=== PATIENT | male | born 1950 | race Caucasian/White ===

== ENCOUNTER → 2024-08-10 | Outpatient (CLI) | payer OTHER, MEDICARE, SELFPAY ==
[2024-08-10 16:29] LABS: Basophils % (Auto) 0 % (0-2.5); Eosinophils # (Auto) 0.1 Thou/mm3 (0.0-0.5); Eosinophils % (Auto) 1 % (0-10); Hemoglobin 13.3 g/dL (13.5-16.0); Immature Granulocytes % (Auto) 0 % (0-0); Immature Granulocytes Auto 0.04 Thou/mm3 (0.00-0.00); Lymphocytes # (Auto) 0.8 Thou/mm3 (1.0-4.8); Lymphocytes % (Auto) 9 % (10-50); Mean Corpuscular HGB Conc 33.3 g/dl (31.0-37.0); Mean Corpuscular Hemoglobin 28.6 pg (25.0-35.0); Mean Corpuscular Volume 86 fL (80-100); Monocytes # (Auto) 0.9 Thou/mm3 (0.0-0.8); Monocytes % (Auto) 10 % (0-12); Neutrophils # (Auto) 7.1 Thou/mm3 (1.8-7.7); Neutrophils % (Auto) 80 % (37-80); Nucleated Red Blood Cell % 0 /100 WBC (0); Platelet Count 240 Thou/mm3 (140-440); RDW Standard Deviation 40.3 fL (35.1-43.9); Red Blood Count 4.65 Miln/mm3 (4.50-5.90); White Blood Count 8.9 Thou/mm3 (3.8-10.6)
[2024-08-10 16:44] LABS: Iron 51 mcg/dL (65-175); Total Iron Binding Capacity 312 mcg/dL (250-425)
[2024-08-10 16:45] LABS: Alanine Aminotransferase 29 U/L (10-49); Albumin, Serum 3.9 gm/dL (3.4-4.8); Albumin/Globulin Ratio 1.5 (1.2-2.2); Alkaline Phosphatase 106 U/L (46-116); Anion Gap 10 (7-16); Aspartate Amino Transferase 25 U/L (0-34); BUN/Creatinine Ratio 12 Ratio (12-20); Bilirubin,Total 0.3 mg/dL (0.3-1.2); Blood Urea Nitrogen 12 mg/dL (9-23); Calcium 8.7 mg/dL (8.3-10.6); Calcium (Corrected) 8.8 mg/dL (8.5-10.1); Carbon Dioxide 32.1 mMol/L (20.0-31.0); Chloride 101 mMol/L (98-107); Globulin 2.6 gm/dL (2.3-3.5); Glucose 97 mg/dL (74-106); Magnesium 1.6 mg/dL (1.6-2.6); Osmolality,Calculated 284 (275-295); Potassium 3.2 mMol/L (3.4-5.1); Sodium 143 mMol/L (136-145); Total Protein 6.5 gm/dL (5.7-8.2); eGFR > 60 See Note
[2024-08-10 16:47] LABS: Vitamin B12 1242 pg/mL (211-911)
== END | disposition home or self-care (01) ==
LOC: COPL 15:23
PROVIDERS: PCP Specialist; Referring Provider Psychiatry & Neurology Neurology; Visit Provider Specialist
DX: D50.9 Iron deficiency anemia, unspecified (principal); D51.9 Vitamin B12 deficiency anemia, unspecified; I10 Essential (primary) hypertension; K50.90 Crohn's disease, unspecified, without complications; K52.9 Noninfective gastroenteritis and colitis, unspecified; R53.82 Chronic fatigue, unspecified
CPT/HCPCS: 36415; 80053; 82607; 83540; 83550; 83735; 85025

== ENCOUNTER 2024-08-19 13:33 | Outpatient (AMB) | payer OTHER, MEDICARE, SELFPAY ==
[2024-08-19 13:42] VITALS: BP 132/81; PULSE 92; RESP 16; TEMP 36.4; O2SAT 92; BMI 35.4
--- NOTE | 2024-08-19 13:42 | ACNOTE_ITS ---
Vital Signs 08/19/24 13:42 Height 1.88 m Height Method Stated Weight 125.333 kg Weight Measurement Method Standing Scale BMI 35.4 BP 132/81 H Blood Pressure Source Automatic Cuff Blood Pressure Location Left Upper Arm Position Sitting Respiration 16 Pulse 92 Pulse Source Monitor Temp 97.5 F Temp Source Temporal Artery Scan Pulse Oximetry (%) 92 L Oxygen Delivery Method Room Air Allergies/Meds Allergies & Medications Allergies No Known Allergies Allergy (Verified 08/19/24 13:43) Medication Reconciliation finasteride 5 mg tablet 5 mg PO QDAY 05/06/19 [History Confirmed 08/19/24] rivaroxaban 20 mg tablet (Xarelto) 20 mg PO QDAY 05/06/19 [History Confirmed 08/19/24] esomeprazole magnesium 40 mg capsule,delayed release 40 mg PO QDAY 05/11/19 [History Confirmed 08/19/24] tamsulosin 0.4 mg capsule (Flomax) 0.4 mg PO QDAY #7 caps 01/26/20 [Rx Confirmed 08/19/24] MA Intake Visit Data Collection New Patient or Established: Established Patient (seen at [facility] within 3 years) Seen by Clinical Staff ONLY (RN/MA): No Pain Present Currently: No Pain scale:: 0 Pain Scale Used: Rosas-Gonzalez/Numerical Last Sawyer Required: No PCP or OBGYN visit in last 3 months: No Hx Now: No Do You Feel Safe at Home: Yes Authorities Contacted: N/A Smoking Status Smoking Status: Never smoker Immunization / Flu Flu Vaccine in the Last 12 Months: No Flu Vaccine Exclusion Criteria: No Exclusion Criteria Past Medical History Past Medical History NEUROLOGIC: Positive Transient Ischemic Attacks (TIA) (10/09/23); Negative Neurological Disorders or Seizures CARDIAC: Positive Cardiac Disorders and Deep Vein Thrombosis; Negative Congestive Heart Failure or Hypertension RESPIRATORY: Positive Pneumonia; Negative Chronic Obstructive Pulmonary Disease (COPD) GASTROINTESTINAL: Positive Gastrointestinal Disorders, Gall Bladder Disease, Gastrointestinal Bleed, Fan's Esophagus, Ulcer, Crohn's Disease, Obstructive Bowel, Hemorrhoids and Gastroesophageal Reflux Disease; Negative Hepatitis or Colorectal Cancer GENITOURINARY: Positive Genitourinary Disorders and Benign Prostatic Hyperplasia; Negative Renal Disease or Prostate Cancer REPRODUCTIVE: Negative Breast Cancer, Genital Herpes, Gonorrhea, Syphilis or Testicular Cancer MUSCULOSKELETAL: Positive Degenerative Disk Disease; Negative Bone Cancer ENDOCRINE: Negative Endocrine Disorders, Diabetes Mellitus Type 1 or Diabetes Mellitus Type 2 HEMATOLOGIC: Positive Blood Disorders and Anemia; Negative Leukemia, Hemophilia, Thalassemia, Sickle Cell Disease or Clotting Pro blems OTHER HISTORY: Positive Shingles, Chicken Pox, Measles and Mumps; Negative Hospitalization, Down Syndrome, Developmental Delay, Falls, Blood Transfusions, Blood Transfusion Reaction, Anesthesia Reactions, Organ Transplant, Chemotherapy, Radiation Therapy, Hyperbaric Therapy, MRSA, VRSA, Vancomycin-Resistant Enterococci, Human Immunodeficiency Virus (HIV), Rubella ([place]ian Measles), Pertussis, Clostridium Difficile, Breast Cancer, Cervical Cancer, Colorectal Cancer, Lung Cancer, Ovarian Cancer, Prostate Cancer or Testicular Cancer Family History FAMILY HISTORY: Positive Family Respiratory Disorders, Family Cardiac Disorders, Family Gastrointestinal Problems and Family Cancer; Negative Family Psychiatric Problems, Family Surgery or Family Anesthesia Reaction Surgical History SURGICAL: Positive Tonsillectomy, Abdominal Surgery, Gastrostomy and Bowel Surgery; Negative Neurologic Surgery, Brain Shunt, Mastectomy, Lumpectomy, Hysterectomy, Tubal Ligation, Section, Vasectomy or Organ Transplant Social History SMOKING STATUS: Smoking status: Never smoker SECOND HAND EXPOSURE: second hand exposure: No ALCOHOL: Alcohol Intake: Former HOUSING: Housing: House LIVES WITH: Lives With: Spouse Patient Radha Rossi Social History Living Situation History Housing: House Housing Other:: Patient lives with at home Tobacco History Smoking Status: Never smoker Second Hand Smoke Exposure: No Alcohol History Alcohol Intake: Former Domestic Abuse History Do You Feel Safe at Home: Yes Review of Systems Report any current symptoms Only answer those that you have currently: Past Medical History Past Medical History Have you ever been diagnosed with any of the following: Neurological Problems Transient Ischemic Attacks (TIA): Yes (10/09/23) Seizures: No Cardiology Problems Congestive Heart Failure: No Deep Vein Thrombosis: Yes Hypertension: No Respiratory Problems Chronic Obstructive Pulmonary Disease (COPD): No Pneumonia: Yes Stomache/Intestinal Problems Hepatitis: No Gall Bladder Disease: Yes Gastrointestinal Bleed: Yes Fan's Esophagus: Yes Ulcer: Yes Colorectal Cancer: No Crohn's Disease: Yes Obstructive Bowel: Yes Hemorrhoids: Yes Gastroesophageal Reflux Disease: Yes Genital/Urinary Problems Renal Disease: No Prostate Cancer: No Benign Prostatic Hyperplasia: Yes Reproductive Problems Breast Cancer: No Genital Herpes: No Gonorrhea: No Syphilis: No Testicular Cancer: No Musculoskeletal Problems Bone Cancer: No Degenerative Disk Disease: Yes Endocrine Problems Diabetes Mellitus Type 1: No Diabetes Mellitus Type 2: No Blood Problems Anemia: Yes Leukemia: No Hemophilia: No Thalassemia: No Sickle Cell Disease: No Clotting Problems: No Other Problems Hospitalization: No Down Syndrome: No Developmental Delay: No Shingles: Yes Falls: No Blood Transfusions: No Blood Transfusion Reaction: No Anesthesia Reactions: No Organ Transplant: No Chemotherapy: No Radiation Therapy: No Hyperbaric Therapy: No MRSA: No VRSA: No Vancomycin-Resistant Enterococci: No Human Immunodeficiency Virus (HIV): No Chicken Pox: Yes Measles: Yes Mumps: Yes Rubella (Albanian Measles): No Pertussis: No Clostridium Difficile: No Cervical Cancer: No Lung Cancer: No Ovarian Cancer: No Surgical History Hysterectomy: No Assessment & Plan Diagnosis / Problem List (1) Bilateral lower extremity edema: Status: Acute Orders: Orders CBC 90 Days K52.9 - Noninfective gastroenteritis and colitis, unspecified Vitamin D 25 Hydroxy Total 90 Days K52.9 - Noninfective gastroenteritis and colitis, unspecified Lipid Panel 90 Days I48.91 - Unspecified atrial fibrillation Ambulatory Hemoglobin A1C 90 Days I48.91 - Unspecified atrial fibrillation Free T4 (Free Thyroxine) 90 Days I48.91 - Unspecified atrial fibrillation US venous doppler LE BI 90 Days R60.0 - Localized edema XR foot comp RT min 3V 90 Days Comprehensive Metabolic Panel 90 Days K52.9 - Noninfective gastroenteritis and colitis, unspecified XR knee BI 3V 90 Days Referrals Orthopedics M25.561 - Pain in right knee, M25.562 - Pain in left knee, M51.36 - Other intervertebral disc degeneration, lumbar region, M79.671 - Pain in right foot, S39.92XA - Unspecified injury of lower back, initial encounter Office Procedures [facility] Level of Care Nursing/Assessment Patient Status: Established Patient Nursing Assessment/Reassessment: Medication Reconciliation, Update PMH in EMR and Vital Signs Coordination of Care: Complex Care and Chronic Disease 1-5, Consent,records obtained, informed consent, Education Simp Pt/Fam and Staff clarify orders Established Patient Charge Established Patient Point Assignment: 85 Established Patient Point Charge: Level 3 (80-115)
== END 2024-08-19 14:34 | disposition home or self-care (01) ==
LOC: HODAHC 13:33
PROVIDERS: PCP Specialist; Referring Provider Specialist
DX: K52.9 Noninfective gastroenteritis and colitis, unspecified (principal); R60.0 Localized edema; I48.91 Unspecified atrial fibrillation; M25.562 Pain in left knee; M25.561 Pain in right knee; M51.369 Other intervertebral disc degeneration, lumbar region without mention of lumbar back pain or lower extremity pain; S39.92XA Unspecified injury of lower back, initial encounter; X58.XXXA Exposure to other specified factors, initial encounter
CPT/HCPCS: 99213; G0463

== ENCOUNTER → 2024-09-01 | Outpatient (CLI) | payer MEDICARE, SELFPAY ==
--- NOTE | 2024-09-01 14:52 | XR_ITS ---
Examination: Venous duplex lower extremity sonogram, bilateral. Date and time of exam: September 01, 2024 1504 hrs. Indications: Lower extremity edema 15 years, nonocclusive thrombus left popliteal vein on venous Doppler December 11, 2022, patient is anticoagulated Technique: Multiple sonographic images of the deep venous system have been obtained. B-mode/2-D grayscale imaging of vascular structures and Doppler spectral analysis (waveforms) and color performed Both legs are examined. Findings: Deep venous systems do not demonstrate abnormal echogenicity. Left popliteal cyst 4.9 cm All visualized deep veins exhibit compressibility. All visualized deep veins exhibit augmentation. Impression: Negative for deep vein thrombosis
--- NOTE | 2024-09-01 15:53 | XR_ITS ---
Examination: Foot, right, 3 views Technique: AP, oblique, lateral views foot, 3 views Date and time of exam: September 01, 2024 1625 hrs. Indications: Right foot pain beginning 2 months ago Findings: Moderate osteopenia 4 mm plantar bony calcaneal spur Moderate diffuse narrowing intertarsal tarsometatarsal metatarsal phalangeal and interphalangeal joints No erosive arthritis Small old appearing bone densities adjacent to the calcaneus but clinical correlation advised Impression: Moderate diffuse narrowing joints of the foot No erosive arthritis Small old appearing bone densities adjacent to the calcaneus but clinical correlation advised Recommend CT scan foot follow-up as clinically warranted
--- NOTE | 2024-09-01 15:53 | XR_ITS ---
Examination: Knee bilateral, 6 views Technique: Knee AP, lateral, oblique each knee total 6 views Date and time of exam: September 01, 2024 1557 hrs. Indications: Bilateral knee pain beginning 4 weeks ago Findings: Bilateral moderate narrowing medial joint spaces Bilateral mild osteoarthritis patellofemoral joints No fracture or dislocation involving either knee Impression: Bilateral moderate narrowing medial joint spaces
[2024-09-01 17:46] LABS: Basophils % (Auto) 0 % (0-2.5); Eosinophils # (Auto) 0.2 Thou/mm3 (0.0-0.5); Eosinophils % (Auto) 2 % (0-10); Hematocrit 37.7 % (41.0-53.0); Hemoglobin 12.2 g/dL (13.5-16.0); Immature Granulocytes % (Auto) 1 % (0-0); Immature Granulocytes Auto 0.06 Thou/mm3 (0.00-0.00); Lymphocytes # (Auto) 1.1 Thou/mm3 (1.0-4.8); Lymphocytes % (Auto) 12 % (10-50); Mean Corpuscular HGB Conc 32.4 g/dl (31.0-37.0); Mean Corpuscular Hemoglobin 28.4 pg (25.0-35.0); Mean Corpuscular Volume 88 fL (80-100); Monocytes # (Auto) 0.8 Thou/mm3 (0.0-0.8); Monocytes % (Auto) 9 % (0-12); Neutrophils # (Auto) 7.1 Thou/mm3 (1.8-7.7); Neutrophils % (Auto) 76 % (37-80); Nucleated Red Blood Cell % 0 /100 WBC (0); Platelet Count 235 Thou/mm3 (140-440); RDW Standard Deviation 42.5 fL (35.1-43.9); Red Blood Count 4.29 Miln/mm3 (4.50-5.90); White Blood Count 9.3 Thou/mm3 (3.8-10.6)
[2024-09-01 18:01] LABS: Alanine Aminotransferase 24 U/L (10-49); Albumin, Serum 3.9 gm/dL (3.4-4.8); Albumin/Globulin Ratio 1.4 (1.2-2.2); Alkaline Phosphatase 96 U/L (46-116); Anion Gap 8 (7-16); Aspartate Amino Transferase 25 U/L (0-34); BUN/Creatinine Ratio 11 Ratio (12-20); Bilirubin,Total 0.3 mg/dL (0.3-1.2); Blood Urea Nitrogen 11 mg/dL (9-23); Calcium 8.4 mg/dL (8.3-10.6); Calcium (Corrected) 8.5 mg/dL (8.5-10.1); Carbon Dioxide 31.3 mMol/L (20.0-31.0); Chloride 105 mMol/L (98-107); Globulin 2.7 gm/dL (2.3-3.5); Glucose 97 mg/dL (74-106); Magnesium 1.6 mg/dL (1.6-2.6); Osmolality,Calculated 286 (275-295); Potassium 3.2 mMol/L (3.4-5.1); Sodium 144 mMol/L (136-145); Total Protein 6.6 gm/dL (5.7-8.2); Vitamin D 25 Hydroxy Total 36.2 ng/mL (7.3-40.2); eGFR > 60 See Note
[2024-09-01 18:08] LABS: Glucose Estimated Average 111 mg/dL (80-131); Hemoglobin A1C 5.5 % Hgb (4.8-6.0)
== END | disposition home or self-care (01) ==
LOC: CDIM 14:38 → COPL 16:41
PROVIDERS: PCP Internal Medicine Cardiovascular Disease; Visit Provider Radiology Diagnostic Radiology
DX: R60.0 Localized edema (principal); M25.862 Other specified joint disorders, left knee; M25.861 Other specified joint disorders, right knee; M25.871 Other specified joint disorders, right ankle and foot; I48.91 Unspecified atrial fibrillation; K52.9 Noninfective gastroenteritis and colitis, unspecified; I48.0 Paroxysmal atrial fibrillation; I63.9 Cerebral infarction, unspecified
CPT/HCPCS: 36415; 73562; 73630; 80053; 82306; 83036; 83735; 84439; 85025; 93970

== ENCOUNTER → 2024-09-05 | Outpatient (CLI) | payer MEDICARE, SELFPAY ==
[2024-09-05 09:57] LABS: Cardiac Risk Estimate 3.4 RATIO (4.0-6.7); Cholesterol 138 mg/dL (132-200); HDL Cholesterol 41 mg/dL (40-60); LDL Cholesterol,Calculated 35 mg/dL (0-130); Triglycerides 309 mg/dL (30-150)
== END | disposition home or self-care (01) ==
LOC: COPL 08:16
DX: I48.91 Unspecified atrial fibrillation (principal)
CPT/HCPCS: 36415; 80061

== ENCOUNTER 2024-09-23 13:25 | Outpatient (AMB) | payer MEDICARE, SELFPAY ==
[2024-09-23 13:31] VITALS: BP 142/82; PULSE 95; RESP 18; TEMP 36.8; O2SAT 93; BMI 35.8
--- NOTE | 2024-09-23 13:31 | PD.RESCLINIC ---
Vital Signs 09/23/24 13:31 Height 1.88 m Height Method Stated Weight 126.722 kg Weight Measurement Method Standing Scale BMI 35.8 BP 142/82 H Blood Pressure Source Automatic Cuff Blood Pressure Location Right Upper Arm Position Sitting Respiration 18 Pulse 95 Pulse Source Monitor Temp 98.3 F Temp Source Temporal Artery Scan Pulse Oximetry (%) 93 L Oxygen Delivery Method Room Air Allergies/Meds Allergies & Medications Allergies No Known Allergies Allergy (Verified 09/23/24 13:31) Medication Reconciliation finasteride 5 mg tablet 5 mg PO QDAY 05/06/19 [History Confirmed 09/23/24] rivaroxaban 20 mg tablet (Xarelto) 20 mg PO QDAY 05/06/19 [History Confirmed 09/23/24] esomeprazole magnesium 40 mg capsule,delayed release 40 mg PO QDAY 05/11/19 [History Confirmed 09/23/24] tamsulosin 0.4 mg capsule (Flomax) 0.4 mg PO QDAY #7 caps 01/26/20 [Rx Confirmed 09/23/24] MA Intake Visit Data Collection New Patient or Established: Established Patient (seen at [facility] within 3 years) Seen by Clinical Staff ONLY (RN/MA): No Pain Present Currently: No Pain scale:: 0 Pain Scale Used: Rosas-Gonzalez/Numerical Social Sciences Research Scientist Required: No PCP or OBGYN visit in last 3 months: No Hx Now: No Do You Feel Safe at Home: Yes Authorities Contacted: N/A Smoking Status Smoking Status: Never smoker Immunization / Flu Flu Vaccine in the Last 12 Months: No Flu Vaccine Exclusion Criteria: No Exclusion Criteria Past Medical History Past Medical History NEUROLOGIC: Positive Transient Ischemic Attacks (TIA) (10/09/23); Negative Neurological Disorders or Seizures CARDIAC: Positive Cardiac Disorders and Deep Vein Thrombosis; Negative Congestive Heart Failure or Hypertension RESPIRATORY: Positive Pneumonia; Negative Chronic Obstructive Pulmonary Disease (COPD) GASTROINTESTINAL: Positive Gastrointestinal Disorders, Gall Bladder Disease, Gastrointestinal Bleed, Fan's Esophagus, Ulcer, Crohn's Disease, Obstructive Bowel, Hemorrhoids and Gastroesophageal Reflux Disease; Negative Hepatitis or Colorectal Cancer GENITOURINARY: Positive Genitourinary Disorders and Benign Prostatic Hyperplasia; Negative Renal Disease or Prostate Cancer REPRODUCTIVE: Negative Breast Cancer, Genital Herpes, Gonorrhea, Syphilis or Testicular Cancer MUSCULOSKELETAL: Positive Degenerative Disk Disease; Negative Bone Cancer ENDOCRINE: Negative Endocrine Disorders, Diabetes Mellitus Type 1 or Diabetes Mellitus Type 2 HEMATOLOGIC: Positive Blood Disorders and Anemia; Negative Leukemia, Hemophilia, Thalassemia, Sickle Cell Disease or Clotting Problems OTHER HISTORY: Positive Shingles, Chicken Pox, Measles and Mumps; Negative Hospitalization, Down Syndrome, Developmental Delay, Falls, Blood Transfusions, Blood Transfusion Reaction, Anesthesia Reactions, Organ Transplant, Chemotherapy, Radiation Therapy, Hyperbaric Therapy, MRSA, VRSA, Vancomycin-Resistant Enterococci, Human Immunodeficiency Virus (HIV), Rubella ([place] Measles), Pertussis, Clostridium Difficile, Breast Cancer, Colorectal Cancer, Lung Cancer, Prostate Cancer or Testicular Cancer Family History FAMILY HISTORY: Positive Family Respiratory Disorders, Family Cardiac Disorders, Family Gastrointestinal Problems and Family Cancer; Negative Family Psychiatric Problems, Family Surgery or Family Anesthesia Reaction Surgical History SURGICAL: Positive Tonsillectomy, Abdominal Surgery, Gastrostomy and Bowel Surgery; Negative Neurologic Surgery, Brain Shunt, Mastectomy, Lumpectomy, Hysterectomy, Tubal Ligation, Section, Vasectomy or Organ Transplant Social History SMOKING STATUS: Smoking status: Never smoker SECOND HAND EXPOSURE: second hand exposure: No ALCOHOL: Alcohol Intake: Former HOUSING: Housing: House LIVES WITH: Lives With: Spouse Patient Radha Rossi Social History Living Situation History Housing: House Housing Other:: Patient lives with at home Tobacco History Smoking Status: Never smoker Second Hand Smoke Exposure: No Alcohol History Alcohol Intake: Former Domestic Abuse History Do You Feel Safe at Home: Yes Review of Systems Report any current symptoms Only answer those that you have currently: Past Medical History Past Medical History Have you ever been diagnosed with any of the following: Neurological Problems Transient Ischemic Attacks (TIA): Yes (10/09/23) Seizures: No Cardiology Problems Congestive Heart Failure: No Deep Vein Thrombosis: Yes Hypertension: No Respiratory Problems Chronic Obstructive Pulmonary Disease (COPD): No Pneumonia: Yes Stomache/Intestinal Problems Hepatitis: No Gall Bladder Disease: Yes Gastrointestinal Bleed: Yes Fan's Esophagus: Yes Ulcer: Yes Colorectal Cancer: No Crohn's Disease: Yes Obstructive Bowel: Yes Hemorrhoids: Yes Gastroesophageal Reflux Disease: Yes Genital/Urinary Problems Renal Disease: No Prostate Cancer: No Benign Prostatic Hyperplasia: Yes Reproductive Problems Breast Cancer: No Genital Herpes: No Gonorrhea: No Syphilis: No Testicular Cancer: No Musculoskeletal Problems Bone Cancer: No Degenerative Disk Disease: Yes Endocrine Problems Diabetes Mellitus Type 1: No Diabetes Mellitus Type 2: No Blood Problems Anemia: Yes Leukemia: No Hemophilia: No Thalassemia: No Sickle Cell Disease: No Clotting Problems: No Other Problems Hospitalization: No Down Syndrome: No Developmental Delay: No Shingles: Yes Falls: No Blood Transfusions: No Blood Transfusion Reaction: No Anesthesia Reactions: No Organ Transplant: No Chemotherapy: No Radiation Therapy: No Hyperbaric Therapy: No MRSA: No VRSA: No Vancomycin-Resistant Enterococci: No Human Immunodeficiency Virus (HIV): No Chicken Pox: Yes Measles: Yes Mumps: Yes Rubella ([place] Measles): No Pertussis: No Clostridium Difficile: No Lung Cancer: No History of Present Illness HPI Narrative Mr. Steve is a 73-year-old male with past medical history of TIA, paroxysmal atrial fibrillation, deep vein thrombus, Crohn's disease status post colostomy, BPH, chronic knee pain and right foot fracture status post complications who presented to the [facility] ambulatory health clinic to establish care. Patient has history of paroxysmal atrial fibrillation and unprovoked deep vein thrombosis currently on Xarelto 20 mg p.o. daily, patient follows Dr. Lius Armando Melo as his nurse leader. Patient follows Dr. Adryan Frank for his Crohn's disease, patient is status post colostomy by Dr. Ludwin Vazquez. Patient is on esomeprazole. Patient did report that he received IV infusion in the past as ordered by Dr. Frank. Patient also has a history of benign prostate hypertrophy and is on Flomax and finasteride. Patient was sent to [facility] in September 2023 for IV iron infusions. Patient had recent lab work done with Dr. Frank outpatient which showed hemoglobin 13.3 otherwise chemistry is unremarkable, potassium 3.2 iron level 51, vitamin B-12 level 1242. Patient does not have a primary care provider and wants to establish care at [facility]. 08/19/2024: Patient seen in clinic for first visit, patient's major complaint is bilateral knee pain which is uncontrolled despite multiple trials of pain medication. Patient does have history of osteoarthritis per him, will obtain bilateral knee x-ray 3 view, will refer patient to orthopedic surgeon Dr. Tobar to establish care. Patient also complains of right foot pain reports that he had a fracture in the past and had post union complications, denies seeing an orthopedic surgeon for the same. Patient's last bilateral venous Doppler was in 2022 and patient has been on Xarelto since then, patient never had outpatient workup for hypercoagulability. But does need to be on anticoagulation as patient does have paroxysmal atrial fibrillation, will obtain bilateral venous Doppler for lower extremities. Patient also complains of generalized weakness will obtain vitamin D levels and thyroid panel. Will obtain CBC CMP hemoglobin A1c and lipid panel, considering history of TIA. Patient will be established at [facility] for primary care. 09/01/2024: CBC shows WBC 9.3, RBC 4.29, hemoglobin 12.2, hematocrit 37.7, platelets 235. CMP shows sodium 144, potassium 3.2, chloride 105, bicarb 31.3, BUN 11, creatinine 1.0, GFR more than 60, glucose 97, hemoglobin A1c 5.5, magnesium 1.6, corrected calcium 8.5, total bilirubin 0.3, AST 25, ALT 24, alk phos 96, total protein 6.6, albumin 3.9, globulin 2.7, triglycerides 390, cholesterol 138, LDL 35, HDL 41, vitamin D level 36.2 Free T4 0.90. Bilateral venous Doppler study shows no DVT, foot x-ray shows moderate diffuse narrowing joints of foot, no erosive arthritis, small old appearing bold densities adjacent to calcaneus but clinical correlation advised. Knee x-ray bilateral shows bilateral moderate narrowing medial joint spaces. 09/23/2024:Patient seen for follow-up, labs and imaging reviewed. Patient expresses frustration over unable to being referred to orthopedics. Educated patient on referral process, informed him that we will reach out to orthopedics regarding his referral status and inform him as soon as possible. Patient otherwise also expresses frustration over financial hardships due to insurance gap, reports that he has to pay multiple co-pays. From health perspective patient has no new current complaints, reports that he still has extensive bilateral knee pain secondary to osteoarthritis patient's advanced joint diseases evidenced but his symptoms and imaging findings of narrowing space. Patient has tried physical therapy in the past and [id number] NSAIDs to manage pain but reports that the pain is progressive and is not resolving, requesting orthopedic evaluation. Patient has limited mobility secondary to disease and uses walker for mobilization. Per patient's review of labs elevated triglycerides noted, informed patient of findings, patient wants to try conservative management. Review of Systems Review of Systems Systems Reviewed: All systems reviewed, normal except as documented Objective/Exam Narrative Physical exam: Physical Exam General: Awake and in no acute distress. Conversational and non-toxic appearing. HEENT: Normocephalic, atraumatic, mucous membranes moist. Heart: Regular rate and rhythm, no murmurs. Lungs: Clear to auscultation with no wheezing or crackles. Abdomen: Soft, nondistended, nontender, positive bowel sounds. ?No guarding or rebound tenderness. Positive for colostomy. Neurologic: Alert and oriented x3, no gross neurological deficit, and patient able to move all 4 extremities. Extremities: 1+ BLE edema Skin: No rash or ecchymoses. Results 09/01/2024: CBC shows WBC 9.3, RBC 4.29, hemoglobin 12.2, hematocrit 37.7, platelets 235. CMP shows sodium 144, potassium 3.2, chloride 105, bicarb 31.3, BUN 11, creatinine 1.0, GFR more than 60, glucose 97, hemoglobin A1c 5.5, magnesium 1.6, corrected calcium 8.5, total bilirubin 0.3, AST 25, ALT 24, alk phos 96, total protein 6.6, albumin 3.9, globulin 2.7, triglycerides 390, cholesterol 138, LDL 35, HDL 41, vitamin D level 36.2 Free T4 0.90. Bilateral venous Doppler study shows no DVT, foot x-ray shows moderate diffuse narrowing joints of foot, no erosive arthritis, small old appearing bold densities adjacent to calcaneus but clinical correlation advised. Knee x-ray bilateral shows bilateral moderate narrowing medial joint spaces. Assessment & Plan Diagnosis / Problem List (1) Knee pain, bilateral: Status: Acute Qualifiers: Chronicity: chronic Qualified Code(s): M25.561 - Pain in right knee; M25.562 - Pain in left knee; G89.29 - Other chronic pain Assessment & Plan: Patient has tried physical therapy in the past and [id number] NSAIDs to manage pain but reports that the pain is progressive and is not resolving, requesting orthopedic evaluation. Patient has limited mobility secondary to disease and uses walker for mobilization. Patient does have history of osteoarthritis Knee x-ray bilateral shows bilateral moderate narrowing medial joint spaces. Plan: -Continue to use flnk-eia-unemvpe medications as needed, will consider referral to physical therapy though has been ineffective in the past -Referred patient to orthopedic surgeon Dr. Tobar to establish care (2) Right foot pain: Status: Acute Assessment & Plan: Complains of right foot pain reports that he had a fracture in the past and had post union complications, denies seeing an orthopedic surgeon for the same. Foot x-ray shows moderate diffuse narrowing joints of foot, no erosive arthritis, small old appearing bold densities adjacent to calcaneus but clinical correlation advised. Plan: -Referred patient to orthopedic surgeon Dr. Tobar to establish care (3) Atrial fibrillation: Status: Acute Qualifiers: Atrial fibrillation type: paroxysmal Qualified Code(s): I48.0 - Paroxysmal atrial fibrillation Assessment & Plan: Patient has history of paroxysmal atrial fibrillation and unprovoked deep vein thrombosis currently on Xarelto 20 mg p.o. daily, patient follows Dr. Luis Armando Melo as his nurse leader. DVT diagnosed in 2022. A1c, T4 -within normal limits Lipid panel shows triglycerides 390, cholesterol 138, LDL 35, HDL 41, Plan: - Continue follow-up with cardiology - Continue Xarelto - ASCVD risk score 22.4%, recommended statin. Case discussed extensively with patient patient does not want any medication for now wants to continue with conservative management. - Patient educated on do exercise as tolerated, does have underlying severe bilateral knee pain secondary to osteoarthritis - Dietary modifications, lifestyle modifications, patient counseled - Will follow lipid panel closely (4) Crohns disease: Status: Acute Qualifiers: Gastrointestinal tract location: unspecified location Digestive disease complication type: other complication Qualified Code(s): K50.918 - Crohn's disease, unspecified, with other complication Assessment & Plan: Follows Dr. Adryan Frank for his Crohn's disease, patient is status post colostomy by Dr. Ludwin Vazquez. Patient is on esomeprazole. Patient did report that he received IV infusion in the past as ordered by Dr. Frank. Patient was sent to [facility] in September 2023 for IV iron infusions. Patient had recent lab work done with Dr. Frank outpatient which showed hemoglobin 13.3 otherwise chemistry is unremarkable, potassium 3.2 iron level 51, vitamin B-12 level 1242. Patient was prescribed recently IV infusion for Crohn disease, though reports that has very high co-pay and is unable to undergo infusions Plan: -Continue follow-up with gastroenterology -Continue esomeprazole (5) BPH (benign prostatic hyperplasia): Status: Chronic Qualifiers: Lower urinary tract symptom presence: symptoms absent Qualified Code(s): N40.0 - Benign prostatic hyperplasia without lower urinary tract symptoms Assessment & Plan: Patient also has a history of benign prostate hypertrophy and is on Flomax and finasteride. Plan: - Continue Flomax and finasteride Plan Referred patient to orthopedics Dr. Tobar. Re referred, will reach out to orthopedic surgeons office Continue follow-up with cardiology and gastroenterology Follow-up in 2 months or as needed. Case discussed with Attending Dr. Kelley. Delia Titus PGY1 Disclaimer: This note was dictated by speech recognition. Minor errors in warehouse order picker may be present due to voice recognition software. Advanced Care Planning Advance care planning discussed with:: patient Physician Billing Established Patient Established Patient: E/M Level 3-CPT 34856 Office Procedures [facility] Level of Care Nursing/Assessment Patient Status: Established Patient Nursing Assessment/Reassessment: Medication Reconciliation, Update PMH in EMR and Vital Signs Coordination of Care: Complex Care and Chronic Disease 1-5, Consent,records obtained, informed consent, Education Simp Pt/Fam and Results/Orders obtained Established Patient Charge Established Patient Point Assignment: 80 Established Patient Point Charge: EP Level 3 (80-115)
== END 2024-09-23 14:17 | disposition home or self-care (01) ==
LOC: HODAHC 13:25
DX: M17.0 Bilateral primary osteoarthritis of knee (principal); M25.862 Other specified joint disorders, left knee; M25.861 Other specified joint disorders, right knee; E78.1 Pure hyperglyceridemia; I48.0 Paroxysmal atrial fibrillation; Z86.718 Personal history of other venous thrombosis and embolism; Z79.01 Long term (current) use of anticoagulants; K50.918 Crohn's disease, unspecified, with other complication; N40.0 Benign prostatic hyperplasia without lower urinary tract symptoms; M79.671 Pain in right foot; M25.871 Other specified joint disorders, right ankle and foot
CPT/HCPCS: 99213; G0463

== ENCOUNTER 2024-11-02 14:46 | Emergency (ER) | payer MEDICARE, SELFPAY ==
--- NOTE | 2024-11-02 | XR_ITS ---
Exam: MRI knee without contrast, left complete Date and time of exam: 1810 hours INDICATIONS: Injury to the knee 2 months ago with knee pain swelling instability Technique: Multiple axial, coronal, and sagittal sections on the knee have been obtained. T2-Weighted sagittal, fat-suppressed images, TR 3,500, TE 62, T2 weighted coronal fat-saturated images, TR 3,500, TE 62 Proton density sagittal sections, TR 1800, TE 31. T-1 weighted coronal images, TR 524, TE 13.0 Findings: Medial meniscus anterior horn is intact. Medial meniscus, body isointense signal. Posterior horn medial meniscus oblique tear as well as truncation inner margin. 5 cm medial popliteal cyst Lateral meniscus anterior horn is intact Lateral meniscus, body is intact Posterior horn lateral meniscus oblique tear communicating inferior articular surface Anterior cruciate ligament high-grade sprain Posterior cruciate ligament appears intact. Knee effusion is large. Quadriceps and patellar tendons appear intact. There is no evidence of tendinosis. Inflammatory change or fracture of Hoffa's fat pad is not seen. Medial patellar facet demonstrates severe thinning. Lateral patellar facet cartilage demonstrates severe thinning. Trochlear cartilage demonstrates severe thinning. Marrow signal adequate. Medial collateral ligament appears intact. No meniscocapsular separation is seen. Illiotibial band and fibular collateral ligament are intact. Biceps femoris tendons appear intact. Medial femoral condylar articular cartilage demonstrates severe thinning. Lateral femoral condylar articular cartilage demonstratessevere thinning. Tibial plateau cartilage demonstrates severe thinning. Impression: Medial lateral meniscus tears High-grade sprain anterior cruciate ligament
[2024-11-02 14:48] VITALS: BMI 35.9
[2024-11-02 14:57] VITALS: BP 163/93; PULSE 67; RESP 18; TEMP 36.7; O2SAT 95
--- NOTE | 2024-11-02 15:17 | PD.EDLOWEX ---
Lower Extremity Injury RME/HPI General Chief Complaint: Extremity Injury, Lower Stated Complaint: L) KNEE PAIN; CAME FOR MRI; R/O ACL TEAR Time Seen by Provider: 11/02/24 15:07 Source: patient Arrival date/time: 11/02/24 14:46 Mode of arrival: wheelchair Limitations: no limitations RME / HPI RME / HPI Narrative: 74-year-old male presents to the ED with a complaint of pain to the left knee x 2 months with difficulty ambulating secondary to subjective pain. Patient tells me that he busted up his knee while playing golf. Patient is requesting an MRI MD complaint: knee injury Onset (ago): month(s) (2 months) Injury: Left: knee Related Data Home Medications ?Medication ?Instructions ?Recorded ?Confirmed finasteride 5 mg tablet 5 mg PO QDAY 05/06/19 09/23/24 rivaroxaban 20 mg tablet (Xarelto) 20 mg PO QDAY 05/06/19 09/23/24 esomeprazole magnesium 40 mg 40 mg PO QDAY 05/11/19 09/23/24 capsule,delayed release Previous Rx's ?Medication ?Instructions ?Recorded tamsulosin 0.4 mg capsule (Flomax) 0.4 mg PO QDAY #7 caps 01/26/20 Allergies Allergy/AdvReac Type Severity Reaction Status Date / Time No Known Allergies Allergy Verified 11/02/24 14:50 Review of Systems Constitutional Constitutional: Reports system reviewed and no additional complaints, except as documented Eyes Eyes: Reports system reviewed and no additional complaints, except as documented, Denies dry eyes, Denies exophthalmos and Reports floaters Cardiovascular Cardiovascular: Denies chest pain with activity and Denies claudication ED Exam General Limitations: Present no limitations General appearance: Present alert and in no apparent distress Head Head exam: Present atraumatic Eye Eye exam: Present normal appearance and EOMI ENT ENT exam: Present normal exam, normal oropharynx and mucous membranes moist Neck Neck exam: Present normal inspection, full ROM and trachea midline Chest Chest inspection: Present normal inspection Extremities Exam Extremities exam: Present other (The left knee was wrapped in a somewhat of a elastic wrap. Patient was reluctant for me to examine the left knee secondary to subjective pain. Patient is able to extend at well. There is no apparent bony deformity or tendon laxity present. Patient able to move his ankle extend and flex. Neurova) Back Exam Back exam: Present normal inspection and full ROM Neurological Exam Neurological exam: Present alert and oriented X3 Psychiatric Psychiatric exam: Present normal affect and normal mood Skin Skin exam: Present warm, dry, intact and normal color Course Course Course Narrative: Patient was requesting an MRI and I spoke with the emergency department hierarchy and the request should be channeled to an orthopedic surgeon or his primary care physician. Patient will be discharged in no apparent distress. Quality Measures none Vital Signs Vital signs: Vital Signs Temperature 98.0 F 11/02/24 14:57 Pulse Rate 67 11/02/24 14:57 Respiratory Rate 18 11/02/24 14:57 Blood Pressure 163/93 H 11/02/24 14:57 Pulse Oximetry (%) 95 11/02/24 14:57 Oxygen Delivery Method Room Air 11/02/24 14:57 Pulse ox room air 95% Extremity Injury, Lower MDM Narrative MDM Narrative:: Patient is to primary care physician for follow-up and a referral to orthopedic surgeon. Patient will be discharged in no apparent distress. Patient data External records reviewed:: [facility] previous records (X-ray) and None Clinical information provided by:: patient Social determinants that could affect healthcare access:: none Patient has the following chronic illnesses:: N/A How is presenting disease/condition affected by chronic disease/condition?: uneffected by (Movement) Evaluation data The following diagnostics were reviewed and interpreted by me:: lab results (None) Lab and/or radiology exams considered but not ordered:: None Interpretation Summary: None Medications / Prescriptions Medications or Prescriptions considered but not ordered:: None Medication administrations:: None Consultations Consultation(s) initiated? (list below): No Consultation #1 (Physician, Specialty, Details): Physician practice assistant on the floor Diagnosis Extremity Injury, Lower Differential Diagnosis: ankle sprain and strain, acute internal derangement of knee, fracture of femur and other Most likely diagnosis given after review of the tests above:: N/A Admission Indicated Admission indicated?: not indicated Explain why admission is indicated or not indicated:: N/A Admission Request Was there a request for admission?: No Admission Attestation Admission request attestation: N/A Disposition Plan Disposition Plan: Discharge Discharge Attestation Discharge Attestation: The patient and all family members were given an opportunity to ask questions and understood the discharge instructions. Discharge instructions specifically effects, indications for sooner follow up or return to the emergency department, and the expected course of current diagnosis. Patient condition: Stable Discharge Plan Plan Patient Disposition: HOME (Self Care) Discharge Disposition comment: Patient is discharged in no apparent distress Patient condition on transfer: Stable Prescriptions/Referrals Prescriptions/Med Rec: No Action esomeprazole magnesium 40 mg capsule,delayed release(DR/EC) 40 mg PO QDAY Patient Comments: TAKE 1 CAPSULE BY MOUTH EVERY DAY finasteride 5 mg Tablet 5 mg PO QDAY Xarelto 20 mg Tablet 20 mg PO QDAY tamsulosin [Flomax] 0.4 mg capsule 0.4 mg PO QDAY Qty: 7 0RF Problem List Clinical Impression: Chronic knee pain Impression comment: Knee pain Patient/Caregiver Discharge Instructions Education Materials: Communicating About Pain Print Language: Italian Stand Alone Forms: Nell Award Info., Patient Portal Info Letter PA/CLINICAL NURSING PROFESSOR Supervising Physician PA/CLINICAL NURSING PROFESSOR Supervising Physician: Cali
--- NOTE | 2024-11-02 17:02 | PD.EDADDENDU ---
Emergency Room Addendum <Nikia Chamorro - Last Filed: 11/02/24 18:05> Addendum Narrative: 1630: Was consulted. I talked to the patient, MRI ordered. Please refer to the emergency department record for history and examination from initial visit.? <Sai Leiva MD - Last Filed: 11/02/24 18:34> Addendum Narrative: 1630: Was consulted. I talked to the patient, MRI ordered. Please refer to the emergency department record for history and examination from initial visit.? I was asked by the PA to go see this patient who has a chronic left knee pain and was requested by his rn pain management and his regular doctor to get an MRI but evidently was difficulty getting this done. He is able to walk but has limited range on his ability to ambulate physical exam his knee has no redness there is no obvious infection it is got edema may be a small effusion. There is no obvious ligamentous instability anteriorly or posteriorly and laterally but he does have tenderness when you do the drawer sign testing. Patient is alert awake and clinically does not appear to be ill in any other way. His right knee moves without any problem normal range of motion. After discussion with the PA and the patient is difficulty getting an MRI done as an outpatient we decided to selectively and then the PA will follow-up on this assuming there is no osteo or other bad disease and he can be discharged home to follow-up with his regular doctor.
--- NOTE | 2024-11-02 17:27 | PC.NURSE ---
CALLED MRI AND SPOKE W/ CHAR. SHE SAID THERE IS ONE PERSON AHEAD OF THE PT AND THEN SHE WILL TAKE HIM.
[2024-11-02] MEDS: HYDROcodone/APAP 10/325 TAB PO (20:47)
== END 2024-11-02 21:12 | disposition home or self-care (01) ==
LOC: SERX 15:53
PROVIDERS: Emergency Provider Emergency Medicine
DX: M25.562 Pain in left knee (principal); G89.29 Other chronic pain
CPT/HCPCS: 73721; 99284; A9270

== ENCOUNTER 2024-12-08 09:36 | Outpatient (AMB) | payer MEDICARE, SELFPAY ==
--- NOTE | 2024-12-08 09:48 | PD.ORTHCLVIS ---
Vital signs 12/08/24 09:55 Height 1.88 m Height Method Measured Weight 123.009 kg Weight Measurement Method Standing Scale BMI 34.7 BP 131/86 H Blood Pressure Source Automatic Cuff Blood Pressure Location Left Upper Arm Position Sitting Respiration 16 Pulse 74 Pulse Source Monitor Temp 97.2 F Temp Source Temporal Artery Scan Pulse Oximetry (%) 92 L Oxygen Delivery Method Room Air Med/Allergies Allergies & Medications Allergies No Known Allergies Allergy (Verified 12/08/24 09:57) Medication Reconciliation finasteride 5 mg tablet 5 mg PO QDAY 05/06/19 [History Confirmed 12/08/24] rivaroxaban 20 mg tablet (Xarelto) 20 mg PO QDAY 05/06/19 [History Confirmed 12/08/24] esomeprazole magnesium 40 mg capsule,delayed release 40 mg PO QDAY 05/11/19 [History Confirmed 12/08/24] tamsulosin 0.4 mg capsule (Flomax) 0.4 mg PO QDAY #7 caps 01/26/20 [Rx Confirmed 12/08/24] Exam Exam Patient is in no acute distress and is cooperative with the examination today. Breathing is nonlabored. Patient has a normal mood and affect. Bilateral extremities were evaluated and demonstrates sensation intact to light touch. Palpable pedal pulses are present. No significant edema is present. Bilateral hips were examined. The patient has no pain with log roll of the hips. Internal rotation to 30 degrees and external rotation to 30 degrees is painless. Negative FADIR. Right knee was examined today. The right knee is in reasonable alignment. Range of motion from 0-120 degrees. Knee is stable to varus and valgus as well as AP translation with <5mm. Patient has a negative McMurrays. There is no pain with patellofemoral compression and no crepitus noted. The knee is nontender to palpation. Left knee was examined today. The left knee is in varus alignment. Range of motion from 0-115 degrees. Knee is stable to varus and valgus as well as AP translation with <5mm. Patient has a negative McMurrays. There is no pain with patellofemoral compression and no crepitus noted. The knee is tender to palpation medially. Assessment and Plan Problem List (1) Arthritis of left knee: Status: Acute Plan: Patient is a 74-year-old male with significant left knee pain and left knee arthritis. He has a significant medical comorbidities. He is unlikely to be a great candidate for total knee replacement as he has an ostomy and has no history of blood clots. He would need a medical clearance if we were to do this. I discussed with him the skin extremely high risk for surgery. I would also weightbearing x-rays to better evaluate both knees. 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 Level 3 (1105-5471) MA Intake Visit Data Collection New Patient or Established: New Patient (never been to [facility]) Reason for Visit:: LEFT KNEE PAIN Seen by Clinical Staff ONLY (RN/MA): No Associate Professor Of Media Arts Required: No PCP or OBGYN visit in last 3 months: Yes Hx Now: No Do You Feel Safe at Home: Yes Authorities Contacted: N/A Questionairres Past Medical History Past Medical History Have you ever been diagnosed with any of the following: Neurological Problems Transient Ischemic Attacks (TIA): Yes (10/09/23) Seizures: No Cardiology Problems Congestive Heart Failure: No Deep Vein Thrombosis: Yes Hypertension: No Respiratory Problems Chronic Obstructive Pulmonary Disease (COPD): No Pneumonia: Yes Stomache/Intestinal Problems Hepatitis: No Gall Bladder Disease: Yes Gastrointestinal Bleed: Yes Fan's Esophagus: Yes Ulcer: Yes Colorectal Cancer: No Crohn's Disease: Yes Obstructive Bowel: Yes Hemorrhoids: Yes Gastroesophageal Reflux Disease: Yes Genital/Urinary Problems Renal Disease: No Prostate Cancer: No Benign Prostatic Hyperplasia: Yes Reproductive Problems Breast Cancer: No Genital Herpes: No Gonorrhea: No Syphilis: No Testicular Cancer: No Musculoskeletal Problems Bone Cancer: No Degenerative Disk Disease: Yes Endocrine Problems Diabetes Mellitus Type 1: No Diabetes Mellitus Type 2: No Blood Problems Anemia: Yes Leukemia: No Hemophilia: No Thalassemia: No Sickle Cell Disease: No Clotting Problems: No Other Problems Hospitalization: No Down Syndrome: No Developmental Delay: No Shingles: Yes Falls: No Blood Transfusions: No Blood Transfusion Reaction: No Anesthesia Reactions: No Organ Transplant: No Chemotherapy: No Radiation Therapy: No Hyperbaric Therapy: No MRSA: No VRSA: No Vancomycin-Resistant Enterococci: No Human Immunodeficiency Virus (HIV): No Chicken Pox: Yes Measles: Yes Mumps: Yes Rubella (Turkmen Measles): No Pertussis: No Clostridium Difficile: No Lung Cancer: No Subjective Visit Visit for: new patient and knee Immunization / Flu Flu Vaccine in the Last 12 Months: No Flu Vaccine Exclusion Criteria: No Exclusion Criteria History of Present Illness Chief complaint: LEFT KNEE PAIN Ariel is a 74-year-old male with significant medical comorbidities of Crohn's with prior ostomy. His significant left knee pain. He has no weightbearing x-rays. Reports his left knee pain has been increasing in pain for the last couple years. History injections in the past. He cannot take anti-inflammatories because he is on a blood thinner. Personal History Red flag PMH: none BMI Counceling provided: No Pain Pain level (0-10): 8 Pain location: outside (lateral) Pain quality: sharp, dull and aching Pain timing: increases with activity Associated signs & symptoms: none Ambulatory data Ambulatory device: walker Treatments Number of previous injections: 1 Improvement with previous injections: No Improvement with PT: No Improvement with NSAIDS: no Review of Systems Review of Systems: All systems negative unless otherwise noted in HPI.
[2024-12-08 09:55] VITALS: BP 131/86; PULSE 74; RESP 16; TEMP 36.2; O2SAT 92; BMI 34.7
--- NOTE | 2024-12-08 10:07 | XR_ITS ---
Examination: Bilateral knees 2 views Right lateral knee left lateral knee 2 views Bilateral axial knees single view TECHNIQUE: Bilateral AP knees standing single view, bilateral PA knees standing single view flexion Standing right lateral knee left lateral knee 2 views Bilateral axial knees single view total 5 views Date and time: December 08, 2024 1022 hours INDICATIONS: Bilateral knee pain 4 months with instability. FINDINGS: Moderate osteopenia. 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
== END 2024-12-08 10:09 | disposition home or self-care (01) ==
LOC: HODSRG 09:36
PROVIDERS: Supervising Provider Orthopaedic Surgery Adult Reconstructive Orthopaedic Surgery; Visit Provider Orthopaedic Surgery Adult Reconstructive Orthopaedic Surgery
DX: M17.12 Unilateral primary osteoarthritis, left knee (principal); M25.562 Pain in left knee; K21.9 Gastro-esophageal reflux disease without esophagitis; Z86.718 Personal history of other venous thrombosis and embolism; K50.90 Crohn's disease, unspecified, without complications
CPT/HCPCS: 73564; 99203; G0463